=== PATIENT | male | born 1965 | race Caucasian/White ===

== ENCOUNTER 2016-12-20 19:50 | Inpatient (IN) | payer BC ==
--- NOTE | ~2016-12-20 | OR ---
Unit #: [id number] #: [id number] Patient: CHRISTINA AKINS [id number] [address] [address] [id number] MR#: [id number] NAME: CHRISTINA AKINS. ROOM: 327 Date of Procedure: 12/21/2016 Admission Date: 12/21/2016 Surgeon: Gustavo Sarabia M.D. : 1965 Attending Physician: Lico Valadez M.D. OPERATIVE REPORT PROCEDURE PERFORMED Esophagogastroduodenoscopy with biopsy. INDICATIONS FOR PROCEDURE A 51-year-old gentleman presented with significant upper GI bleeding, anemia of acute blood loss, undergoing evaluation with upper endoscopy. MEDICATIONS Monitored anesthesia. POSTOPERATIVE FINDINGS 1. At least four large ulcers 6 to 8 mm each, cratered, in antral area. No active bleeding or stigmata of recent bleeding was seen. Gastritis noted. Biopsies were taken looking for H pylori. 2. Hiatal hernia, acquired esophageal ring nonobstructing. 3. Duodenum and distal duodenum was normal. PLAN Continue PPI therapy. Treatment of H pylori if positive. DESCRIPTION OF PROCEDURE The patient was explained of the procedure, risks, and benefits along with risks and benefits of anesthesia. He was brought to the endoscopy room. Propofol anesthesia was given. Bite block was placed. The scope was passed down the mouth into esophagus, stomach, duodenum, and distal duodenum. Findings as described. Biopsies were taken. Gently, I pulled the scope out of the patient's mouth. He tolerated it well. Dictated by... Shae Michael/jonah TD: 12/21/2016 14:34 JOB #: [id number] Unit #: [id number] #: [id number] Patient: CHRISTINA AKINS OPERATIVE REPORT Page 1 of 1 X Gustavo Sarabia MD X PROCEDURE OPERATIVE NOTE
--- NOTE | ~2016-12-20 | CR72 ---
[facility] A Service of [facility] & [facility] RADIOLOGY TEXT RESULTS PATIENT: CHRISTINA AKINS LOCATION: [facility] 327- : 66 UNIT #: [id number] AGE: [address]: Lico Valadez MD SEX: M ORDER DR: [id number] [facility] [address] [facility]. [place], [place] [address] [id number] MR#: [id number] Acc #: [id number] NAME: CHRISTINA AKINS. : 1965 SEX: M STUDY DATE/TIME: 12/21/2016 3:08 UNIT: [address] ROOM: [facility] STUDY DESCRIPTION: CR Chest Single View Portable Attending Physician: Lico Valadez M.D. Ordering Physician: Mariella Parrish M.D. Primary Care Physician: No Primary Care Physician MEDICAL IMAGING REPORT This report is preliminary unless electronic signature is present EXAM Portable chest. INDICATIONS Shortness of air and cough today. PROCEDURE Frontal view chest. COMPARISON None. FINDINGS Upper limits of normal heart size. Lungs are clear. No pleural fluid or pneumothorax. IMPRESSION No active process. Dictated by... Jay Mckay M.D. THIS IS AN ELECTRONICALLY VERIFIED REPORT Jay Mckay M.D. at 12/25/2016 7:22 AM KRISHNA/deejay TD: 12/21/2016 10:19 JOB #: [id number] MEDICAL IMAGING REPORT Page 1 of 1 COPY
--- NOTE | ~2016-12-20 | CO ---
Unit #: [id number] #: [id number] Patient: CHRISTINA AKINS [id number] [address] [place], [place] [address] [id number] I MR#: [id number] NAME: CHRISTINA AKINS. ROOM: 327 Age: 51 Sex: M Admission Date: 12/21/2016 : 1965 Attending Physician: Lico Valadez M.D. Primary Care Physician: Primary Care Physician No Requesting Physician: Mariella Parrish M.D. Consultation Date: 12/21/2016 CONSULTATION REPORT HISTORY OF PRESENT ILLNESS Mr. Akins was admitted last night through the emergency room. He has been having vomiting of blood as well as blood in the stool and black stools, going off and on for the last 2 weeks. He was very pale and weak on arrival. The patient is a heavy drinker over the last many years, however, has not been diagnosed with any liver cirrhosis or problems in the past. He does take naproxen and steroids on a daily basis for polymyalgia rheumatica. Apparently history of GI bleeding in the past. At this time, patient is sedated with Ativan and I am unable to talk to him directly. PAST MEDICAL HISTORY 1. Polymyalgia rheumatica. 2. History of cholecystectomy. 3. Hemorrhoidectomy. 4. Hernia repair. HOME MEDICATIONS Include: 1. Prednisone. 2. Naproxen. ALLERGIES None. SOCIAL HISTORY Smoker, very heavy drinker. Denies drug abuse. FAMILY HISTORY Not contributory. REVIEW OF SYSTEMS Unable to obtain. PHYSICAL EXAMINATION VITAL SIGNS: Temperature 98, pulse 133, respirations 18, blood pressure 132/95. GENERAL: Sleeping. Mildly tachycardic. HEENT: Pupils equal and reactive. Sclerae anicteric. Oral mucosa moist. NECK: No JVD. No lymphadenopathy. LUNGS: Clear to auscultation bilaterally. HEART: Regular rate and rhythm, no murmurs. ABDOMEN: Soft, nontender, nondistended. No ascites. Unit #: [id number] #: [id number] Patient: CHRISTINA AKINS EXTREMITIES: Without clubbing, cyanosis, or edema. NEUROLOGIC: Intact. SKIN: Warm and dry. DIAGNOSTIC STUDIES LABORATORY: Hemoglobin on arrival 7.6, baseline of 15, platelet count 95,000, MCV 108. Mild elevation of AST, ALT. Alcohol level was 48. ASSESSMENT AND PLAN 1. Patient with severe upper gastrointestinal bleeding. Peptic ulcer disease versus varices versus others. PPI infusion, octreotide infusion has been started. Will plan on doing an upper endoscopy for further evaluation and possible therapeutic intervention. 2. Anemia secondary to blood loss. Will replace. Keep an eye on hemoglobin for further need. 3. Alcoholism. Very high risk of DTs. Withdrawal protocol to be used. 4. Chronic NSAID use. Thank you, Dr. Parrish, for this interesting consult. Will follow along. Dictated by... Shae Michael/cortney TD: 12/21/2016 15:41 JOB #: [id number] CONSULTATION REPORT Page 1 of 1 X Gustavo Sarabia MD X CONSULTATION REPORT
--- NOTE | ~2016-12-20 | DS ---
Unit #: [id number] #: [id number] Patient: CHRISTINA AKINS [id number] [facility]. [place], [place] [address] [id number] I MR#: [id number] NAME: CHRISTINA AKINS. ROOM: 327 Age: 51 Sex: M Admission Date: 12/21/2016 : 1965 Discharge Date: 12/22/2016 Attending Physician: Lico Valadez M.D. Primary Care Physician: No Primary Care Physician DISCHARGE SUMMARY DISCHARGE DIAGNOSES 1. Acute blood loss anemia. 2. Gastric ulcers. 3. Gastritis. 4. Alcohol abuse. 5. Polymyalgia rheumatica. HOSPITAL COURSE The patient is a 51-year-old male, who presented to [facility] Emergency Department with the complaint of fatigue. He also stated he had been having problems with black tarry stools and abdominal pain. He was noted to be tachycardia with a heart rate of 133 and hemoglobin of 7.6. The patient is noted to have polymyalgia rheumatica, takes prednisone daily. Drinks alcohol including six beers and 1 to 2 pints of Vodka a day. Also, the patient states that he has been taking anti-inflammatories for pain and states that he has been taking both "Naproxen and Aleve." The patient was transfused 2 units of packed cells. He was taken for EGD and was noted to have four large gastric ulcers and gastritis. There was an incidental finding of esophageal ring and hiatal hernia. The patient was continued on PPI therapy begun upon admission. At the time of discharge, the patient states he is feeling better. He is having no abdominal pain, no signs or symptoms of bleeding. I had a long discussion with this patient about his alcohol use and have also discussed not taking anti-inflammatory drugs. Given the patient's polymyalgia rheumatica and his need for ongoing steroids, I have discussed a tapering dose with the patient and will attempt to reduce his steroid to 10 mg of prednisone daily if he is able to tolerate it. DISCHARGE MEDICATIONS 1. Ferrous gluconate 324 mg p.o. daily. 2. Hydrocodone/acetaminophen one tab p.o. q.4 hours p.r.n. 3. Protonix 40 mg p.o. b.i.d. 4. Prednisone 10 mg p.o. daily. FOLLOWUP The patient is to follow up with his primary care provider next week. Dictated by... Unit #: [id number] #: [id number] Patient: MABLECHRISTINA M.D. CAM/ch TD: 12/25/2016 09:22 JOB #: [id number] DISCHARGE SUMMARY Page 1 of 1 X Lico Valadez MD X DISCHARGE SUMMARY
--- NOTE | ~2016-12-20 | HP ---
Unit #: [id number] #: [id number] Patient: CHRISTINA AKINS [id number] [address] [address] [id number] MR#: [id number] NAME: CHRISTINA AKINS ROOM: [address]3635 Age: 51 Sex: M Admission Date: 12/21/2016 : 1965 Attending Physician: Mariella Parrish M.D. Primary Care Physician: No Primary Care Physician HISTORY AND PHYSICAL CHIEF COMPLAINT Upper GI bleed. HISTORY This pleasant, 51-year-old male with polymyalgia rheumatica on chronic steroids and nonsteroidal anti-inflammatory drugs with history of alcohol abuse is admitted for an upper GI bleed. Patient states that he was well until three weeks prior to admission when he developed fatigue. Recently developed nausea and hematemesis along with melena and mid abdominal pain. Notes weight loss with the above. Was quite pale yesterday and ultimately presented to this emergency department last evening tachycardic to 133. He was bolused with 2 liters of saline and a Protonix drip and octreotide drip were prescribed as patient does have an upper GI bleed. His currently hematocrit is 22 with a hemoglobin of 7.6. Patient takes prednisone daily for his PMR along with nonsteroidal anti-inflammatory drugs. He drinks about 6 beers and 1-2 pints daily, currently is tremulous. PAST MEDICAL HISTORY 1. Polymyalgia rheumatica diagnosed about a year ago on prednisone. 2. Cholecystectomy. 3. Appendectomy. 4. Hemorrhoidectomy. 5. Hernia repair. 6. Reconstructive right knee surgery. ALLERGIES None. HOME MEDICATIONS 1. Prednisone 10 mg b.i.d. 2. Naprosyn b.i.d. 3. Aleve b.i.d. p.r.n. FAMILY HISTORY Leukemia. SOCIAL HISTORY The patient lives with his girlfriend. He smokes two packs per day of tobacco. He drinks 6 beers a day and 1-2 pints of vodka daily. REVIEW OF SYSTEMS Notable for abdominal discomfort, melena, hematemesis, PMR, abovementioned Unit #: [id number] #: [id number] Patient: CHRISTINA AKINS surgeries, tobacco and alcohol use, recent weight loss, and some muscle wasting. All other systems were reviewed and are otherwise negative. PHYSICAL EXAMINATION GENERAL APPEARANCE: Pleasant, pale, 51-year-old male currently in no acute distress. VITAL SIGNS: Temperature 98.6, pulse 133, respirations 18, blood pressure 132/95, and O2 saturation 100% on room air. HEENT: Eyes: PERRLA. Extraocular muscles are intact. Pharynx is benign. Somewhat cushingoid appearing facies. NECK: Supple without adenopathy or thyromegaly. CHEST: Clear. CARDIAC: Slightly tachycardic S1 and S2 without murmur. ABDOMEN: Bowels sounds are present. No hepatosplenomegaly, tenderness, or masses at this time. RECTAL: Examination, I am told, was heme-positive. EXTREMITIES: Without C, C, or E. Pedal pulses are present. NEUROLOGIC: Patient is awake, alert, and oriented. Cranial nerves are intact. Equal strength throughout. He is somewhat tremulous. DIAGNOSTIC STUDIES LABORATORY: Hematocrit is 22, hemoglobin 7.6, normal white count and platelet count, MCV is 108. Coags normal. SMA-12: Potassium is 3, protein 5.4, albumin is 2.9, AST 53, and ALT 54. Alcohol 48. ASSESSMENT 1. Upper GI bleed likely related to peptic ulcer disease. 2. Alcohol abuse. 3. Hypokalemia. 4. Polymyalgia rheumatica on prednisone. 5. Macrocytic anemia secondary to alcohol abuse and GI bleeding. 6. Chronic pain on nonsteroidal anti-inflammatory drugs. 7. Tobacco abuse. 8. Likely obstructive sleep apnea from girlfriend's history. PLANS 1. Protonix drip will be continued along with octreotide drip. 2. Benzos and vitamins. 3. Patient currently is being given a second unit of blood. 4. Stress dose steroids. 5. Replace potassium and check magnesium. 6. SCDs for DVT prophylaxis. 7. GI consultation. 8. Chest x-ray, p.r.n. DuoNeb, and AutoPAP. Dictated by Mariella Parrish M.D. DEEJAY/pc TD: 12/21/2016 05:14 JOB #: [id number] Unit #: [id number] #: [id number] Patient: CHRISTINA AKINS HISTORY AND PHYSICAL Page 1 of 1 X Mariella Parrish MD HISTORY AND PHYSICAL
[~2016-12-20 19:50] MED LIST: PERCOCET 10/3251 TAB PO; ULTRAM PO; [UNRECOGNIZED DRUG - REMARK]
[2016-12-20 21:08] LABS: BASOPHIL% 0.4 % (0-2.5); DIFF IND YES; EOSINOPHIL% 0.2 % (0.0-7.0); HEMATOCRIT 21.9 % (38.0-50.0); HEMOGLOBIN 7.6 gm/dL (13.0-16.0); LYMPHOCYTE# 2.1 X10e3 (1.0-3.5); LYMPHOCYTE% 26.2 % (17.0-45.0); MEAN CELL VOLUME 107.8 FL (83-96); MEAN CORPUSCULAR HEMOGLOBIN 37.5 PG (28-34); MEAN CORPUSCULAR HGB CONC 34.8 g/dL (30-36); MEAN PLATELET VOLUME 7.3 FL (6.5-11.5); MONOCYTE# 0.6 X10e3 (0-1.0); MONOCYTE% 7.1 % (3.0-12.0); NEUTROPHIL# 5.3 X10e3 (1.5-7.1); NEUTROPHIL% 66.1 % (40-75); PLATELET COUNT 135 X10e3 (140-420); RED BLOOD COUNT 2.03 X10e (3.90-5.60); RED CELL DISTRIBUTION WIDTH 14.5 % (11.0-15.5); WHITE BLOOD COUNT 8.1 X10e3 (4.0-10.5)
[2016-12-20 21:17] LABS: PARTIAL THROMBOPLASTIN TIME 23.7 SECONDS (23.5-31.3); PROTHROMBIN TIME (PATIENT) 10.8 SECONDS (9.6-11.5)
[2016-12-20 21:37] LABS: ALBUMIN SERUM 2.9 g/dL (3.5-5.0); BILIRUBIN, DIRECT 0.2 mg/dL (0.0-0.2); BILIRUBIN,INDIRECT 0.4 mg/dL (0.0-0.9); BILIRUBIN,TOTAL 0.6 mg/dL (0.2-2.0); BUN/CREATININE RATIO 51.25; CALCIUM SERUM 8.5 mg/dL (8.4-10.2); CREATININE SERUM 0.8 mg/dL (0.6-1.4); GLOM FILT RATE Estimated 104.2 mL/min (>60); PROTEIN TOTAL SERUM 5.4 g/dL (6.0-8.3)
[2016-12-20 22:12] LABS: NUCLEATED RED BLOOD CELL 2 /100 ([, 0]); PLATELET ESTIMATE NORMAL (NORMAL); POLYCHROMASIA SL
[2016-12-21 04:14] LABS: AMPHETAMINE NEG (NEG); BARBITURATES NEG (NEG); BENZODIAZEPINES NEG (NEG); COCAINE NEG (NEG); MARIJUANA POS (NEG); OPIATES POS (NEG); TRICYCLIC ANTIDEPRESSANTS NEG (NEG); U METHADONE NEG (NEG)
[2016-12-21 05:00] LABS: BASOPHIL% 0.3 % (0-2.5); EOSINOPHIL% 0.6 % (0.0-7.0); HEMATOCRIT 23.8 % (38.0-50.0); HEMOGLOBIN 8.3 gm/dL (13.0-16.0); LYMPHOCYTE# 0.9 X10e3 (1.0-3.5); MEAN CORPUSCULAR HEMOGLOBIN 34.2 PG (28-34); MEAN CORPUSCULAR HGB CONC 34.7 g/dL (30-36); MEAN PLATELET VOLUME 7.2 FL (6.5-11.5); MONOCYTE# 0.5 X10e3 (0-1.0); MONOCYTE% 6.5 % (3.0-12.0); NEUTROPHIL# 5.5 X10e3 (1.5-7.1); NEUTROPHIL% 79.6 % (40-75); RED BLOOD COUNT 2.42 X10e (3.90-5.60); RED CELL DISTRIBUTION WIDTH 21.1 % (11.0-15.5); WHITE BLOOD COUNT 6.9 X10e3 (4.0-10.5)
[2016-12-21 05:15] LABS: MEAN CELL VOLUME 98.5 FL (83-96)
[2016-12-21 05:16] LABS: DIFF IND YES; PLATELET COUNT 93 X10e3 (140-420)
[2016-12-21 05:17] LABS: BUN/CREATININE RATIO 41.42; CALCIUM SERUM 7.4 mg/dL (8.4-10.2); CREATININE SERUM 0.7 mg/dL (0.6-1.4); GLOM FILT RATE Estimated 110.1 mL/min (>60); MAGNESIUM 1.8 mg/dL (1.6-3.0); POTASSIUM 3.5 mmol/L (3.5-5.1)
[2016-12-21 05:20] LABS: PLATELET ESTIMATE DECREASED (NORMAL)
[2016-12-21 05:21] LABS: POLYCHROMASIA SL
[2016-12-21 09:33] LABS: HEMATOCRIT 27.2 % (38.0-50.0); HEMOGLOBIN 9.4 gm/dL (13.0-16.0)
[2016-12-21 15:55] LABS: HEMATOCRIT 27.3 % (38.0-50.0); HEMOGLOBIN 9.3 gm/dL (13.0-16.0)
[2016-12-22 07:38] LABS: HEMATOCRIT 23.4 % (38.0-50.0); HEMOGLOBIN 8.1 gm/dL (13.0-16.0); MEAN CELL VOLUME 101.7 FL (83-96); MEAN CORPUSCULAR HEMOGLOBIN 35.1 PG (28-34); MEAN CORPUSCULAR HGB CONC 34.5 g/dL (30-36); MEAN PLATELET VOLUME 7.1 FL (6.5-11.5); RED BLOOD COUNT 2.3 X10e (3.90-5.60); RED CELL DISTRIBUTION WIDTH 21.8 % (11.0-15.5); WHITE BLOOD COUNT 6.2 X10e3 (4.0-10.5)
[2016-12-22 08:30] LABS: ALBUMIN SERUM 2.2 g/dL (3.5-5.0); BILIRUBIN,TOTAL 0.6 mg/dL (0.2-2.0); BUN/CREATININE RATIO 32.5; CALCIUM SERUM 7.3 mg/dL (8.4-10.2); CREATININE SERUM 0.4 mg/dL (0.6-1.4); GLOM FILT RATE Estimated 138.5 mL/min (>60); POTASSIUM 3.1 mmol/L (3.5-5.1)
[2016-12-22] MEDS ORDERED: FERROUS GLUCON324 MG PO (17:30)
[2016-12-22] MEDS ORDERED: PROTONIX PO (17:31)
[2016-12-22] MEDS ORDERED: PREDNISONE10 MG PO (17:44)
== END 2016-12-22 17:55 | disposition home or self-care (01) | DRG 378 ==
LOC: CED 19:50 → C3A PCU 12-21 02:20 → CEDOF 12-21 02:20 → CED 12-21 02:30 → CEDOF 12-21 07:46 → C3A PCU 12-21 08:16
PROVIDERS: Emergency Medicine; Internal Medicine
PROC: 30233N1 Transfusion of Nonautologous Red Blood Cells into Peripheral Vein, Percutaneous Approach (ICD-10-PCS; 2016-12-20)
PROC: 0DB68ZX Excision of Stomach, Via Natural or Artificial Opening Endoscopic, Diagnostic (ICD-10-PCS; principal; 2016-12-21 12:45)
DX: K92.2 Gastrointestinal hemorrhage, unspecified (principal); D62 Acute posthemorrhagic anemia; K22.2 Esophageal obstruction; K25.9 Gastric ulcer, unspecified as acute or chronic, without hemorrhage or perforation; M35.3 Polymyalgia rheumatica; Z90.49 Acquired absence of other specified parts of digestive tract; F17.210 Nicotine dependence, cigarettes, uncomplicated; E87.6 Hypokalemia; G89.29 Other chronic pain; F10.20 Alcohol dependence, uncomplicated; K44.9 Diaphragmatic hernia without obstruction or gangrene; K29.70 Gastritis, unspecified, without bleeding; Y90.2 Blood alcohol level of 40-59 mg/100 ml
CPT/HCPCS: 36415; 71010; 80048; 80053; 80076; 80307; 83735; 85014; 85018; 85025; 85027; 85610; 85730; 86850; 86900; 86901; 86923; 88305; 88312; 94760; 99285; C9113; G0480; J1720; J2060; J2250; J2354; J3411; J3475; P9016